=== PATIENT | male | born 1995 | race Caucasian/White ===

== ENCOUNTER 2019-01-09 23:51 | Emergency (ER) | payer OTHER ==
[~2019-01-09] VITALS: Ht 177.8 cm; Wt 100.0 kg
[2019-01-09 23:52] VITALS: BP 161/90
[2019-01-09] MEDS ORDERED: IBUP1TAB7 PO (23:58)
[2019-01-10] MEDS ORDERED: KETO10TAB PO (00:40)
[2019-01-10] MEDS ORDERED: AMOX875T PO (00:40)
[2019-01-10] MEDS ORDERED: LIDOCAINE VISCOUS 2% SOLN 15ML UDC MT ONE (00:45)
[2019-01-10] MEDS ORDERED: AMOXICILLIN 500 MG CAP PO ONE (00:45)
[2019-01-10] MEDS ORDERED: NORCO 5/325MG TABLET (BULK FOR ED) PO ONE (00:45)
[2019-01-10] MEDS ORDERED: ACETAMINOPHEN 500 MG TAB PO ONE (00:45)
== END 2019-01-10 01:03 | disposition home or self-care (01) ==
LOC: M ED 23:51
DX: K08.89 Other specified disorders of teeth and supporting structures (principal); S09.93XA Unspecified injury of face, initial encounter; X58.XXXA Exposure to other specified factors, initial encounter; Y92.89 Other specified places as the place of occurrence of the external cause; Y93.89 Activity, other specified; Z87.891 Personal history of nicotine dependence